=== PATIENT | male | born 2000 | race Caucasian/White ===

== ENCOUNTER 2023-09-23 20:51 | Emergency (ER) | payer OTHER ==
[2023-09-23] MEDS: Lidocaine 1% 10 ML MDV INJECT ONE (21:16)
== END 2023-09-23 22:25 | disposition home or self-care (01) ==
LOC: VM.ED 20:51
DX: S01.81XA Laceration without foreign body of other part of head, initial encounter (principal); R68.84 Jaw pain; W21.13XA Struck by golf club, initial encounter; Y93.53 Activity, golf
CPT/HCPCS: 12011; 70486; 99283; J3490